=== PATIENT | female | born 1990 | race Hispanic/Latino ===

== ENCOUNTER 2018-12-30 07:55 | Day surgery (SDC) | payer MEDICAID ==
[2018-12-22 13:30] LABS: BASOPHILS % (AUTO) 1.3 % (0.0-5.0); EOSINOPHILS % (AUTO) 1.4 % (0.0-8.0); HEMATOCRIT 35.1 % (36-48); MEAN CORPUSCULAR HEMOGLOBIN 29.5 pg (27.0-33.0); MEAN CORPUSCULAR HGB CONC 33.4 g/dL (32.0-36.0); MEAN CORPUSCULAR VOLUME 88.2 fL (79-99); MONOCYTES % (AUTO) 5.7 % (3.0-13.0); NEUTROPHILS % (AUTO) 60.6 % (40.0-77.0); PLATELET COUNT (AUTO) 269 K/uL (130-400); RED BLOOD CELL COUNT(AUTO) 3.98 MIL/uL (4.00-5.50); RED CELL DISTRIBUTION WIDTH 15.2 % (11.0-15.5); WHITE BLOOD COUNT (AUTO) 7.3 K/uL (4.8-10.8)
[2018-12-22 13:40] VITALS: BP 118/56
--- NOTE | 2018-12-22 15:43 | NUR ---
CX PT CX DUE TO NO AUTHORIZATION
[~2018-12-30] VITALS: Ht 162.6 cm; Wt 76.7 kg
[2018-12-30] VITALS (18 sets, daily range): BP systolic 98–132; BP diastolic 47–79
[~2018-12-30 07:55] MED LIST: SERT50TA PO
[2018-12-30] MEDS: LACTATED RINGERS 1000ML 1,000 ML IV SCH ×2 (09:15→11:03)
[2018-12-30] MEDS ORDERED: ONDANSETRON HCL 4 MG/2 ML VIAL ONE (10:04)
[2018-12-30] MEDS ORDERED: LIDOCAINE PF 2% 5ML ABBOJECT ONE (10:04)
[2018-12-30] MEDS ORDERED: MIDAZOLAM HCL 1 MG/ML 2ML VIAL ONE (10:05)
[2018-12-30] MEDS ORDERED: PROPOFOL 10 MG/ML 20ML VIAL IV ONE (10:05)
[2018-12-30] MEDS ORDERED: FENTANYL CITRATE PF 50 MCG/1 ML 2ML VIAL ONE (10:08)
[2018-12-30] MEDS ORDERED: BUPIVACAINE/PF 0.25% 30ML VIAL IJ ONE (10:20)
[2018-12-30] MEDS ORDERED: ESMOLOL HCL 10 MG/ML 10 ML VIAL ONE ×2 (10:26→10:27)
[2018-12-30] MEDS ORDERED: MEPERIDINE-PF 25 MG/ML SYG ONE ×2 (11:15→11:23)
--- NOTE | 2018-12-30 12:05 | NUR ---
PATIENT BROUGHT TO ROOM FROM PACU BY JADEN KAMARA. PATIENT LYING IN BED, RESPIRATIONS UNLABORED, NO COMPLAINTS OF PAIN AT THIS TIME. DRESSING DRY AND INTACT.
--- NOTE | 2018-12-30 13:05 | NUR ---
PATIENT DISCHARGED DISCHARGE INSTRUCTIONS GIVEN TO CAREGIVER, TITUS WILKERSON. CAREGIVER VERBALIZED UNDERSTANDING OF INCISION CARE AND FOLLOW UP APPOINTMENTS AND PRESCRIPTIONS. PATIENT TAKEN TO PRIVATE VEHICLE VIA WHEELCHAIR.
== END 2018-12-30 13:05 ==
LOC: DAH 07:55
PROVIDERS: ATTEND Surgery
DX: D17.21 Benign lipomatous neoplasm of skin and subcutaneous tissue of right arm (principal); F41.9 Anxiety disorder, unspecified; F32.9 Major depressive disorder, single episode, unspecified; Z79.899 Other long term (current) drug therapy; Z98.890 Other specified postprocedural states; Z82.5 Family history of asthma and other chronic lower respiratory diseases
CPT/HCPCS: 24073; 36415; 81025; 84703; 85025; 88304; A4450; A4930; J2001; J2175 ×2; J2250; J2405; J2704; J3010; J3490 ×2; J7120 ×2